=== PATIENT | male | born 1970 | race Caucasian/White ===

== ENCOUNTER 2018-01-15 07:05 | Day surgery (SDC) | payer OTHER ==
[2018-01-15 07:51] LABS: Basophils # (auto) 0 uL; Basophils % (auto) 1.2 % (0.0-2.0); Eosinophils # (auto) 0.1 uL; Eosinophils % (auto) 4.2 % (0.0-7.0); Hemoglobin 13.5 g/dL (13.5-17.5); Lymphocytes # (auto) 1.2 uL; Mean Corpuscular Hemoglobin 30.1 pg (28.0-32.0); Mean Corpuscular Hgb Conc. 33.8 g/dL (32.0-36.0); Mean Corpuscular Volume 88.9 fL (80.0-100.0); Monocytes # (auto) 0.3 uL; Monocytes % (auto) 10.4 % (0.0-12.0); Neutrophils # (auto) 1.2 uL; Neutrophils % (auto) 43.2 % (37.0-80.0); Nucleated Red Blood Cells % 0.2 %; Platelet Count (auto) 180 10^3/uL (140-450); Red Cell Distribution Width 13.1 % (11.8-14.3); White Blood Cell 2.9 10^3/uL (4.4-10.8)
[2018-01-15 08:04] LABS: INR 1.07 (0.9-1.15); Partial Thromboplastin Time 26.1 sec (23.78-33.04); Prothrombin Time 11.4 sec (9.27-12.13)
[2018-01-15] MEDS ORDERED: LIDOCAINE VISCOUS 2% 15ML UD ONE (08:16)
[2018-01-15] MEDS ORDERED: NALOXONE HCL 0.4 MG/ML VIAL ONE (08:16)
[2018-01-15] MEDS ORDERED: FLUMAZENIL 0.1 MG/ML INJ 10ML MDV IV ONE (08:16)
[2018-01-15] MEDS ORDERED: SODIUM CHLORIDE LOCK 10 ML ONE (08:16)
[2018-01-15] MEDS ORDERED: diphenhdrAMINE HCL 50 MG/1 ML VL ONE (08:17)
[2018-01-15] MEDS: fentaNYL CITRATE 100 MCG/2 ML VL ONE ×4 (08:46→08:58)
[2018-01-15] MEDS: MIDAZOLAM HCL 5 MG/ML-1ML VIAL ONE ×3 (08:46→08:54)
[2018-01-15] MEDS ORDERED: MIDAZOLAM HCL 5 MG/ML-1ML VIAL ONE (08:52)
[2018-01-15 09:55] VITALS: BP 117/68
== END 2018-01-15 09:18 | disposition home or self-care (01) ==
LOC: GI 07:05
PROVIDERS: ATTEND Internal Medicine Gastroenterology
DX: K29.50 Unspecified chronic gastritis without bleeding (principal); R13.10 Dysphagia, unspecified; K29.80 Duodenitis without bleeding; K92.1 Melena
CPT/HCPCS: 36415; 43239; 43248; 45378; 85025; 85610; 85730; 88305; 88342; J1200; J2250; J3010; 99152; A6257

== ENCOUNTER 2019-04-22 12:56 | Emergency (ER) | payer OTHER ==
[~2019-04-22] VITALS: Ht 180.3 cm; Wt 77.1 kg
[2019-04-22 13:33] VITALS: BP 105/70
[2019-04-22] MEDS ORDERED: SODIUM CHLORIDE 0.9% 1,000 ML IV ONE (13:45)
[2019-04-22 14:08] LABS: Basophils # (auto) 0 uL; Basophils % (auto) 0.4 % (0.0-2.0); Eosinophils # (auto) 0 uL; Eosinophils % (auto) 0.9 % (0.0-7.0); Hematocrit 44.9 % (41.0-53.0); Lymphocytes % (auto) 36.2 % (10.0-50.0); Mean Corpuscular Hemoglobin 29.8 pg (28.0-32.0); Mean Corpuscular Hgb Conc. 33.5 g/dL (32.0-36.0); Mean Corpuscular Volume 89.1 fL (80.0-100.0); Monocytes # (auto) 0.2 uL; Monocytes % (auto) 7.7 % (0.0-12.0); Neutrophils # (auto) 1.6 uL; Neutrophils % (auto) 54.8 % (37.0-80.0); Nucleated Red Blood Cells % 0.4 %; Platelet Count (auto) 150 10^3/uL (140-450); Red Blood Cells 5.04 10^6/uL (4.5-5.90); White Blood Cell 2.9 10^3/uL (4.4-10.8)
[2019-04-22 14:14] LABS: Urine WBC None Seen /hpf (0 - 3)
[2019-04-22 14:21] LABS: Albumin 3.9 g/dL (3.4-5.0); Amylase 59 U/L (25-115); Anion Gap 7 (5-15); BUN/Creatinine Ratio 25.6; Blood Urea Nitrogen 40 mg/dL (7-18); Calcium 8.6 mg/dL (8.5-10.1); Carbon Dioxide 26 mmol/L (21-32); Chloride 109 mmol/L (98-107); GFR African American 61 mL/min; GFR Non-African American 51 mL/min; Glucose 86 mg/dL (74-106); Lipase 209 U/L (73-393); Potassium 3.8 mmol/L (3.5-5.1); Sodium 142 mmol/L (136-145)
[2019-04-22 14:24] LABS: Urine Bacteria NONE SEEN /hpf (None Seen); Urine Blood Negative /uL (Negative); Urine Mucus FEW (None Seen); Urine Specific Gravity 1.027 (1.001-1.035)
[2019-04-22 14:26] LABS: Alanine Aminotransferase 18 U/L (16-61); Alkaline Phosphatase 81 U/L (45-117); Aspartate Aminotransferase 16 U/L (15-37); Bilirubin, Total 1.3 mg/dL (0.2-1.0); Total Protein 7.8 g/dL (6.4-8.2)
== END 2019-04-22 15:50 | disposition home or self-care (01) ==
LOC: EDBD 12:56 → EEVIPCON 12:59 → ER 12:59
DX: R53.1 Weakness (principal); E86.0 Dehydration
CPT/HCPCS: 36415; 74176; 80053; 81001; 82150; 83690; 84484; 85025; 94761; 96360; 99284; J7030